=== PATIENT | female | born 1990 | race Caucasian/White ===

== ENCOUNTER 2024-11-26 15:58 | Outpatient (CLI) | payer BC, SELFPAY ==
--- NOTE | 2024-11-26 16:00 | CRLHL7_ITS ---
For Patients: As a result of the Century Cures Act, medical imaging exams and procedure reports are released immediately into your electronic medical record. You may view this report before your referring provider. If you have questions, please contact your health care provider. INDICATION: Lost IUD strings COMPARISON: none TECHNIQUE: 2D donaldson scale and color Doppler images were acquired of the pelvis using a transabdominal and transvaginal approach. FINDINGS: Subserosal anterior left uterine fibroid measures 2.8 x 2.0 x 2.9 cm. Large left posterior exophytic fibroid measures 11.4 x 7.1 x 7.6 cm. Uterus measures 11.0 cm in length by 3.6 cm in AP diameter by 7.4 cm in transverse dimension. The endometrium is difficult to evaluate due to the presence of the large posterior fibroid. An IUD appears to be present within the endometrial canal. The right ovary measures 3.9 in size and the left ovary measures 1.8 2.4 4.9 2.2 2.0. The ovaries demonstrate normal arterial and venous blood flow on color Doppler analysis. There are no suspicious fluid collections within the cul-de-sac. Dominant follicle left ovary measures 15 x 13 x 16 millimeters. IMPRESSION: IUD appears to be in good position within the endometrial canal. Large posterior exophytic fibroid measures 11.4 cm. Smaller anterior fibroid measures 2.9 cm. Dictated by Roge Tan MD @ 11/26/2024 6:02:59 PM (Electronically Signed)
== END 2024-11-26 15:59 | disposition home or self-care (01) ==
LOC: US 15:59
PROVIDERS: Visit Provider Obstetrics & Gynecology
DX: T83.32XA Displacement of intrauterine contraceptive device, initial encounter (principal); D25.9 Leiomyoma of uterus, unspecified
CPT/HCPCS: 76830; 76856

== ENCOUNTER 2024-12-24 06:46 | Day surgery (SDC) | payer BC, SELFPAY ==
[2024-12-24 07:13] VITALS: BMI 37.5
[2024-12-24 07:34] VITALS: BP 134/82; PULSE 68; RESP 16; TEMP 36.8; O2SAT 97
[2024-12-24] MEDS: SODIUM CHLORIDE 0.9 % (FLUSH) 10 ML SYRINGE IVF (07:36)
[2024-12-24] MEDS: 0.9 % SODIUM CHLORIDE 500 ML 500 ML 100 ML IV (07:41)
--- NOTE | 2024-12-24 08:15 | W.PM.H&PU ---
History & Physical Update History & Physical Update H&P Reviewed and patient assessed: No changes noted H&P Updates: Doing well. Had a great trip to [facility]! Ever since our fibroid discussion, Mckenzie has been palpating her abdomen and does note the fibroid. Will do exam under anesthesia to better characterize her anatomy. We reviewed consent and intended plan of care. We also had a lengthy discussion about options for management of fibroids (medical management, UAE, myomectomy, hysterectomy ect). Mckenzie does not desire to conceive ever but unsure if her symptoms (feeling the fibroid and occasional constipation) are enough for her to pursue treatment. Happy with plan to repeat pelvic US in months to assess the status of fibroids. Will proceed with planned surgery.
[2024-12-24] MEDS: LACTATED RINGERS 1000 ML 1,000 ML 100 ML IV (09:00)
[2024-12-24] MEDS: levonorgestreL (Mirena) IUD 1 EACH INTRAUTERI (09:10)
[2024-12-24] MEDS: LIDOCAINE 1%-EPI 1:100,000 20 ML INFILTRATI (09:10)
--- NOTE | 2024-12-24 09:15 | P.ANES_ITS ---
Anesthesia Charges Start Date/Time Anesthesia Start Date: 12/24/24 Anesthesia Start Time: 08:36 Stop Date/Time Anesthesia Stop Date: 12/24/24 Anesthesia Stop Time: : Coding CPT Codes CPT Codes: ANESTH HYSTEROSCOPE/GRAPH - 39033 ([id number]) P2 - PATIENT W/MILD SYST DISEASE, QK - VENDOR RELATIONSHIP MANAGER 2-4 CNCRNT ANES PROC, QX - PRIMARY SCHOOL PRINCIPAL SVC W/ MD MED DIRECTION
--- NOTE | 2024-12-24 09:15 | W.ANESCHARGE ---
Anesthesia Charges Start Date/Time Anesthesia Start Date: 12/24/24 Anesthesia Start Time: 08:36 Stop Date/Time Anesthesia Stop Date: 12/24/24 Anesthesia Stop Time: : Coding CPT Codes CPT Codes: ANESTH HYSTEROSCOPE/GRAPH - 10276 ([id number]) P2 - PATIENT W/MILD SYST DISEASE, QK - HEAD BATCHER 2-4 CNCRNT ANES PROC, QX - SALES ENABLEMENT LEAD SVC W/ MD MED DIRECTION
[2024-12-24 09:21] VITALS: BP 106/65; PULSE 81; RESP 16; TEMP 36.3; O2SAT 93
[2024-12-24 09:30] VITALS: BP 109/68; PULSE 73; RESP 16; O2SAT 97
--- NOTE | 2024-12-24 09:37 | W.PM.GYNPROC ---
Procedure Note Time Seen by Provider: 09:00 Date of procedure: 12/24/24 Will [facility] bill your pro fee for this procedure?: Yes Procedure Description: Preoperative diagnosis: 33 year-old with G0 with lost Mirena IUD strings and declined in office hysteroscopy. Secondarily, she has known uterine fibroids. Postoperative diagnosis: Same Procedure: Exam under anesthesia, hysteroscopy, dilation, Mirena IUD removal, and new Mirena IUD insertion Anesthesia: Conscious sedation with paracervical block. Surgeon:Deepa Hansen MD Estimated blood loss: 0 mL Specimen: None UOP: 400 cc Findings: Exam under anesthesia: Cervix palpates normal. Uterus: anteverted position, 12 week size, mobile. Bulky fibroid uterus noted - more prominent on right side. On hysteroscopy: Normal positioning of the IUD noted. Strings inside cervical canal. IUD was removed intact. Hysteroscopy after new Mirena IUD placement showed, appropriate positioning of the IUD. Procedure: Mckenzie was taken to the operating where conscious sedation was found to be adequate. She was placed in the dorsal lithotomy position. An exam under anesthesia was performed with findings stated above. She was then prepped and draped in normal sterile manner. Bladder was drained with straight cath. A bivalve metal speculum was placed in the vaginal canal. The cervix and vaginal canal appear normal. A paracervical block was placed using 1% lidocaine with epinephrine: 5 mL injected at the 4 and 8 o'clock positions on the cervix. The anterior lip of the cervix was then grasped with a long Allis. The cervix was dilated to Hegar 6. The uterus sounded to 7 cm. The hysteroscope advanced into the uterus and a diagnostic hysteroscopy was performed with findings stated above. Normal saline was used as the insufflation medium. Hysteroscopic grasper used to grasp the IUD string and remove it from the uterus with gentle traction. The uterus and documented a normal appearing uterine cavity. Attention was turned towards new Mirena IUD insertion. The IUD is loaded into the insertion tube, inserted to the sounded depth, and the IUD is deployed. Insertion tube was removed. Strings are trimmed to 3 cm. There were no complications with insertion. Hysteroscope was used to document appropriate position of the Mirena IUD. Fluid deficit at the end of the procedure 40 mL. Total fluid: 285 mL The hysteroscope and Allis clamp were removed from the uterus and cervix. Excellent hemostasis noted. Nothing was used for hemostasis. The patient tolerated the procedure well. Sponge, lap and instruments counts were correct at the end of the procedure. The patient was awakened from anesthesia and taken to the recovery area in stable condition. Surgical debrief performed and specimen reviewed at the end of the procedure.
[2024-12-24] MEDS: IBUPROFEN 400 MG TABLET PO (09:40)
[2024-12-24 09:45] VITALS: BP 116/77; PULSE 69; RESP 16; O2SAT 97
--- NOTE | 2024-12-24 09:46 | P.ANES_ITS ---
Anesthesia Charges Start Date/Time Anesthesia Start Date: 12/24/24 Anesthesia Start Time: 08:36 Stop Date/Time Anesthesia Stop Date: 12/24/24 Anesthesia Stop Time: : Coding CPT Codes CPT Codes: ANESTH HYSTEROSCOPE/GRAPH - 73030 ([id number]) QK - ACID PURIFICATION EQUIPMENT OPERATOR 2-4 CNCRNT ANES PROC, QX - GROUND CREW LINESMAN SVC W/ MD MED DIRECTION, P2 - PATIENT W/MILD SYST DISEASE
--- NOTE | 2024-12-24 09:46 | W.ANESCHARGE ---
Anesthesia Charges Start Date/Time Anesthesia Start Date: 12/24/24 Anesthesia Start Time: 08:36 Stop Date/Time Anesthesia Stop Date: 12/24/24 Anesthesia Stop Time: : Coding CPT Codes CPT Codes: ANESTH HYSTEROSCOPE/GRAPH - 34961 ([id number]) QK - RANGE OPERATOR 2-4 CNCRNT ANES PROC, QX - SHINGLE BOLT CUTTER SVC W/ MD MED DIRECTION, P2 - PATIENT W/MILD SYST DISEASE
[2024-12-24 10:00] VITALS: BP 123/78; PULSE 72; RESP 16; O2SAT 97
--- NOTE | 2024-12-24 11:14 | SUR.PHASEII ---
Pt reports if nasal airway needing to be placed she would like right nostril to be used vs. left.
== END 2024-12-24 10:50 | disposition home or self-care (01) ==
LOC: OR 06:48
PROVIDERS: Visit Provider Obstetrics & Gynecology
PROC: 0UDB8ZZ Extraction of Endometrium, Via Natural or Artificial Opening Endoscopic (ICD-10-PCS; CPT 58558; principal; 2024-12-24 08:15)
DX: T83.32XA Displacement of intrauterine contraceptive device, initial encounter (principal); D25.9 Leiomyoma of uterus, unspecified
CPT/HCPCS: 58562; 58300; 00952; 81025; A9270; J1100; J2250; J2405; J2704; J3010; J3490; J7030; J7120; J7298

== ENCOUNTER 2025-02-25 16:11 | Outpatient (CLI) | payer BC, SELFPAY ==
--- NOTE | 2025-02-25 16:45 | CRLHL7_ITS ---
For Patients: As a result of the Century Cures Act, medical imaging exams and procedure reports are released immediately into your electronic medical record. You may view this report before your referring provider. If you have questions, please contact your health care provider. INDICATION: Leiomyoma of uterus stability COMPARISON: 11/26/2024 TECHNIQUE: 2D donaldson-scale and color Doppler images were acquired of the pelvis using a transabdominal and transvaginal approach. Transvaginal imaging performed to better visualize the endometrial stripe and ovaries. FINDINGS: Large posterior exophytic fibroid is again noted and measures 11.4 x 7.6 x 8.2 cm, previously measuring 11.4 x 7.1 x 7.6 cm. Lower uterine segment subserosal fibroid on the left measures 3.2 x 2.7 x 2.9 cm. Uterus measures 8.2 cm in length by 4.1 cm in AP diameter by 5.7 cm in transverse dimension. IUD is present in the endometrial canal. Endometrial thickness 3.6 millimeters. The right ovary measures 3.8 x 2.4 x 2.5 cm in size and the left ovary measures 3.3 x 2.0 x 2.2 cm. The ovaries demonstrate normal arterial and venous blood flow on color Doppler analysis. There are no suspicious fluid collections within the cul-de-sac. IMPRESSION: Large posterior uterine fibroid is not significantly changed, measuring 11.4 cm. Dictated by Roge Tan MD @ 02/26/2025 4:09:06 PM (Electronically Signed)
== END 2025-02-25 16:12 | disposition home or self-care (01) ==
LOC: US 16:11
PROVIDERS: Visit Provider Obstetrics & Gynecology
DX: D25.9 Leiomyoma of uterus, unspecified (principal)
CPT/HCPCS: 76830; 76856